=== PATIENT | female | born 1985 | race Caucasian/White ===

== ENCOUNTER 2018-08-17 00:57 | Emergency (ER) | payer OTHER ==
[2018-08-17 01:10] VITALS: RESP 20; O2SAT 100
--- NOTE | 2018-08-17 01:20 | C.PDOC ---
History Of Present Illness 33 year old female presents to the ER with a complaint of chest pain that began this afternoon. Patient states the pain worsens with movement and deep inspiration. Denies fever, chills, or recent injury. Chief Complaint (Nursing): Chest Pain History Per: Patient History/Exam Limitations: no limitations Onset/Duration Of Symptoms: Hrs Current Symptoms Are (Timing): Still Present Associated Symptoms: denies: Nausea, Dyspnea, Diaphoresis, Syncope Modifying Factors: None Exacerbating Factors: Movement, Deep Breathing Alleviating Factors: None Recent travel outside of the [place]: No Past Medical History Reviewed: Historical Data, Nursing Documentation, Vital Signs Vital Signs: Last Vital Signs Temp 98.5 F 08/17/18 01:06 Pulse 106 H 08/17/18 01:06 Resp 20 08/17/18 01:06 BP 142/87 08/17/18 01:06 Pulse Ox 100 08/17/18 01:06 - Medical History PMH: Anxiety Denies: Chronic Kidney Disease Family History: States: Unknown Family Hx - Social History Hx Alcohol Use: Yes Hx Substance Use: No - Immunization History Hx Tetanus Toxoid Vaccination: No Hx Influenza Vaccination: No Hx Pneumococcal Vaccination: No Review Of Systems Constitutional: Negative for: Fever, Chills Cardiovascular: Positive for: Chest Pain Respiratory: Negative for: Cough, Shortness of Breath Gastrointestinal: Negative for: Nausea, Vomiting Genitourinary: Negative for: Dysuria, Hematuria Musculoskeletal: Negative for: Neck Pain Neurological: Negative for: Weakness, Numbness Physical Exam - Physical Exam Appears: Non-toxic Skin: Normal Color, Warm, Dry Head: Atraumatic, Normacephalic Eye(s): bilateral: Normal Inspection Oral Mucosa: Moist Neck: Normal, No Midline Cervical Tenderness, No Paracervical Tenderness, Supple Chest: Symmetrical, Tenderness (Left anterior wall, aggravated with movement of left shoulder. No swelling or rash.) Cardiovascular: Rhythm Regular Respiratory: Normal Breath Sounds, No Rales, No Rhonchi, No Wheezing Gastrointestinal/Abdominal: Soft, No Tenderness Back: No CVA Tenderness Extremity: Normal ROM (x4) Neurological/Psych: Oriented x3, Normal Speech ED Course And Treatment - Laboratory Results Result Diagrams: 08/17/18 01:36 08/17/18 01:36 ECG: Interpreted By Me, Viewed By Me ECG Rhythm: Sinus Rhythm ECG Interpretation: Normal, No Acute Changes Interpretation Of ECG: NSR, normal tracings. Rate From EC O2 Sat by Pulse Oximetry: 100 (Room air) Pulse Ox Interpretation: Normal - Radiology CXR: Interpreted by Me, Viewed By Me CXR Interpretation: Yes: No Acute Disease, Other (normal chest film). No: Infiltrates Progress Note: EKG, blood work, and CXR ordered. Flexeril and toradol administered. Disposition Counseled Patient/Family Regarding: Diagnosis - Disposition Referrals: Sanjuanita Leonard MD [Staff Provider] - Disposition: HOME/ ROUTINE Disposition Time: 02:31 Condition: STABLE Prescriptions: Naproxen 375 mg PO TIDPC #14 tablet Instructions: Costochondritis (DC) Forms: [employer] (Portuguese) - POA Present On Arrival: None - Clinical Impression Clinical Impression: Chest wall pain - Scribe Statement The provider has reviewed the documentation as recorded by the Scribe Robert Ibarra All medical record entries made by the Scribe were at my direction and p ersonally dictated by me. I have reviewed the chart and agree that the record accurately reflects my personal performance of the history, physical exam, medical decision making, and the department course for this patient. I have also personally directed, reviewed, and agree with the discharge instructions and disposition.
[2018-08-17 01:40] LABS: BASO # 0.1 K/uL (0.0-0.2); BASO % 0.7 % (0.0-2.0); EOS # 0.1 K/uL (0.0-0.7); EOS % 0.9 % (0.0-4.0); HEMOGLOBIN 12.5 g/dL (11.0-16.0); LYMPH % 21.9 % (20.0-40.0); MEAN CORPUSCULAR HEMOGLOBIN 29.7 pg (27.0-31.0); MEAN CORPUSCULAR HGB CONC 34.5 g/dL (33.0-37.0); MEAN PLATELET VOLUME 9.6 fL (7.2-11.7); MONO # 0.9 K/uL (0.0-0.8); MONO % 9.8 % (0.0-10.0); NEUT # 6.1 K/uL (1.8-7.0); NEUT % 66.7 % (50.0-75.0); NRBC % 0.1 % (0.0-2.0); RBC 4.22 Mil/uL (3.80-5.20); RED CELL DISTRIBUTION WIDTH 14.4 % (11.5-14.5); WHITE BLOOD COUNT 9.1 K/uL (4.8-10.8)
[2018-08-17 01:51] LABS: ALB/GLOB RATIO 1.3 (1.0-2.1); ALBUMIN 4.5 g/dL (3.5-5.0); ALT/SGPT 23 U/L (9-52); AST/SGOT 20 U/L (14-36); BLOOD UREA NITROGEN 11 mg/dL (7-17); GFR NON-AFRICAN AMERICAN > 60
[2018-08-17 02:49] VITALS: BP 106/73; PULSE 77; TEMP 98.9
--- NOTE | 2018-08-17 08:46 | RAD ---
Date of service: 08/17/2018 HISTORY: chest pain COMPARISON: No prior. TECHNIQUE: Chest PA and lateral FINDINGS: LUNGS: No active pulmonary disease. PLEURA: No significant pleural effusion identified. No pneumothorax apparent. CARDIOVASCULAR: No aortic atherosclerotic calcification present. Normal cardiac size. No pulmonary vascular congestion. OSSEOUS STRUCTURES: No significant abnormalities. VISUALIZED UPPER ABDOMEN: Normal. OTHER FINDINGS: None. IMPRESSION: No acute cardiopulmonary disease appreciated.
--- NOTE | 2018-08-19 17:28 | CARD ---
APPROVED REPORT Date of service: 08/17/2018 EKG Measurement Heart [id number] <Conclusion> Normal sinus rhythm Normal ECG
== END 2018-08-17 02:50 | disposition home or self-care (01) ==
LOC: C.ER 00:57
DX: R07.89 Other chest pain (principal)
CPT/HCPCS: 71046; 80053; 84484; 85025; 85378; 93005; 96374; 99284; J1885